=== PATIENT | male | born 1955 | race Caucasian/White ===

== ENCOUNTER → 2017-07-01 | Outpatient (CLI) | payer MEDICARE ==
[2017-07-01 08:15] LABS: HEMOGLOBIN 15.6 g/dL (14.1-18.0); LYMPH # 2.1 K/mm3 (0.7-4.5); LYMPH % 26.3 % (10-50)
[2017-07-01 11:18] LABS: BUN 11 mg/dL (7-18); PROSTATE-SPECIFIC AG SCREEEN 1.1 ng/mL (0.0-4.0)
[2017-07-01 11:19] LABS: GFR (ESTIMATED) 75 ML/MIN (>60)
== END ==
LOC: LAB 07:56
PROVIDERS: Nurse Practitioner Family
DX: R35.1 Nocturia (principal); I10 Essential (primary) hypertension; R73.03 Prediabetes; M10.9 Gout, unspecified; Z12.5 Encounter for screening for malignant neoplasm of prostate
CPT/HCPCS: G0103